=== PATIENT | female | born 1960 | race Caucasian/White ===

== ENCOUNTER → 2019-03-28 08:35 | Outpatient (CLI) | payer MEDICAID, SELFPAY ==
--- NOTE | 2019-03-28 08:40 | CA_ITS ---
APPROVED REPORT Market Research Interviewer: SANTOS Laterality: Bilateral Study Quality: Good Indications: Dizziness and Vertigo Risk Factors Hypertension: Hyperlipidemia Smoking Doppler Spectral Velocity Analysis ECA (R) 92.00/21.10 cm/s ECA (L) 60.20/18.10 cm/s dICA (R) 79.60/31.10 cm/s dICA (L) 69.70/31.80 cm/s Lilly (R) 81.60/33.00 cm/s Lilly (L) 56.30/23.70 cm/s pICA (R) 82.50/30.00 cm/s pICA (L) 43.90/16.80 cm/s dCCA (R) 121.00/34.60 cm/s dCCA (L) 79.30/27.00 cm/s pCCA (R) 143.00/37.70 cm/s pCCA (L) 110.00/33.30 cm/s Vert (R) 43.60/10.50 cm/s Vert (L) 43.90/18.40 cm/s ICA/CCA 0.68 ICA/CCA 0.88 Findings Duplex evaluation demonstrates no evidence of hemodynamically significant stenosis of the bilateral Internal Carotid Arteries. Antegrade flow seen bilateral vertebral arteries. Solid nodule seen left thyroid gland. Conclusion uplex evaluation demonstrates no evidence of hemodynamically significant stenosis of the bilateral Internal Carotid Arteries. Antegrade flow seen bilateral vertebral arteries. 1.5cm Solid nodule seen left thyroid gland. Electronically signed by : Christiano Hernandez MD 03/28/2019 15:55:14
== END ==
PROVIDERS: PCP Nurse Practitioner Family; Visit Provider Nurse Practitioner Family
DX: R42 Dizziness and giddiness (principal)
CPT/HCPCS: 93880

== ENCOUNTER → 2020-01-11 15:06 | Outpatient (CLI) | payer MEDICAID, SELFPAY ==
--- NOTE | 2020-01-11 15:09 | MR_ITS ---
PROCEDURE: MR HEAD/BRAIN WO CON CLINICAL INDICATION: AMNESIA Dizziness, amnesia COMPARISON: No exams were available for comparison TECHNIQUE: Routine multiplanar multi echo sequences are performed without gadolinium enhancement. FINDINGS: No midline shift, mass effect, intracranial hemorrhage, or hydrocephalus is evident. No evidence of acute infarction. The cerebellopontine angle, cerebellum, and brainstem are unremarkable. There is mild bifrontal atrophy. Unremarkable appearing white matter signal intensity. There is a partial empty sella. 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 There is some questionable thickening of the anterior aspect of the cyst wall.. No mastoid effusion or sinus air-fluid level IMPRESSION: 1. No acute intracranial findings. 2. Mild bifrontal atrophy. 3. 9 mm pineal cyst with questionable asymmetric thickening of the anterior wall of the cyst. Suggest 3 month follow-up without and with gadolinium enhancement with thin sections of the pineal gland for further evaluation. Dictated by: Christiano Hernandez MD 01/12/2020 06:04 Electronically signed by Christiano Hernandez MD in [place] 01/12/2020 06:04
== END ==
PROVIDERS: PCP Nurse Practitioner Family; Visit Provider Nurse Practitioner Family
DX: R41.3 Other amnesia (principal)
CPT/HCPCS: 70551

== ENCOUNTER 2021-01-25 16:49 | Emergency (ER) | payer MEDICAID, SELFPAY ==
[2021-01-25 16:50] VITALS: BP 138/74; PULSE 93; RESP 16; TEMP 37.1; O2SAT 97; BMI 47.5
--- NOTE | 2021-01-25 17:22 | HMH.EDGENADL ---
ED Disposition Clinical Impression: Abrasion, left knee, initial encounter Knee contusion Qualifiers: Encounter type: initial encounter Laterality: left Qualified Code(s): S80.02XA - Contusion of left knee, initial encounter Left knee sprain Qualifiers: Encounter type: initial encounter Involved ligament of knee: unspecified ligament Qualified Code(s): S83.92XA - Sprain of unspecified site of left knee, initial encounter Disposition: Home, Self-Care Condition on Discharge: Good Instructions: DI for Knee Sprain, How to Use a Knee Immobilizer Additional Instructions: Knee immobilizer until seen by orthopedics. Call orthopedics tomorrow and make appointment for follow-up. Ice for pain and swelling. Tylenol or ibuprofen for pain. Referrals: Joseline Dowell [Primary Care Provider] - Nelson Dougherty MD [Staff Physician] - - Critical Care Critical Care Time: No Attestation: On 01/25/21, the high probability of a clinically significant, sudden or life threatening deterioration of the following system(s) required my full and direct attention, intervention and personal management. The time I documented below is in addition to time spent performing reported procedures but includes the following listed in this critical care notation. Medical Decision Making - Lalito Inquiry Pt receiving controlled substance: No Vital Signs: 01/25/21 16:50 Temperature 98.8 F Temperature Source Oral Pulse Rate [Left] 93 H Respiratory Rate 16 Blood Pressure [Right Arm] 138/74 Blood Pressure Mean [Right Arm] 95 Blood Pressure Source [Right Arm] Automatic Cuff Blood Pressure Position [Right Arm] Sitting 02 Sat by Pulse Oximetry 97 Oxygen Delivery Method Room Air - Radiology Data #1 Image(s): Knee Image Reviewed: Yes I have reviewed radiologist's interpretation PROCEDURE INFORMATION: Exam: XR Left Knee Exam date and time: 01/25/2021 5:40 PM Age: 60 years old Clinical indication: Patient HX: Fall 2 days ago, left knee pain and weakness; Additional info: Injury TECHNIQUE: Imaging protocol: XR Left knee. Views: 3 views. COMPARISON: No relevant prior studies available. FINDINGS: Bones/joints: There are mild degenerative changes of the knee joint, predominantly involving the medial joint compartment. There is no evidence of acute fracture. There is no evidence of joint malalignment or dislocation. Soft tissues: There are no soft tissue masses or fluid collections. IMPRESSION: 1. There are mild degenerative changes of the knee joint, predominantly involving the medial joint compartment. 2. No evidence of acute fracture. 3. No evidence of acute dislocation. General Adult HPI - General Chief complaint: Extremity Problem,Nontraumatic Stated complaint: AO fall 01/23 injured L knee Time Seen by Provider: 01/25/21 17:22 Mode of Arrival: Ambulatory Limitations: No Limitations Description of Symptoms (Recalled from ER Triage Doc. by RN): patient fell off porch on tuesday. no LOC, did not hit head. patient now complains of left knee weakness, with abrasion. patient also caught self during fall with both hands, but recently had right carpal tunnel surgery 1week ago - History of Present Illness HPI narrative: 2 days ago she fell striking her left knee. Since then her left knee feels weak . She says sometimes when she stands up it wants to give out on her. The rest of her leg is not weak and she is able to walk when she gets up. She has an abrasion on her left knee. She recently had carpal tunnel surgery and says she struck her right hand where she had surgery, but the sutures are intact. She also sustained an abrasion to her right elbow. - Related Data Home Medications Medication Instructions Recorded Confirmed Amlodipine Besylate 10 mg PO DAILY 01/25/21 01/25/21 Ergocalciferol (Vitamin D2) 50,000 unit PO DAILY
--- NOTE | 2021-01-25 17:40 | XR_ITS ---
PROCEDURE INFORMATION: Exam: XR Left Knee Exam date and time: 01/25/2021 5:40 PM Age: 60 years old Clinical indication: Patient HX: Fall 2 days ago, left knee pain and weakness; Additional info: Injury TECHNIQUE: Imaging protocol: XR Left knee. Views: 3 views. COMPARISON: No relevant prior studies available. FINDINGS: Bones/joints: There are mild degenerative changes of the knee joint, predominantly involving the medial joint compartment. There is no evidence of acute fracture. There is no evidence of joint malalignment or dislocation. Soft tissues: There are no soft tissue masses or fluid collections. IMPRESSION: 1. There are mild degenerative changes of the knee joint, predominantly involving the medial joint compartment. 2. No evidence of acute fracture. 3. No evidence of acute dislocation.
--- NOTE | 2021-01-25 17:45 | PC.NURSE ---
patient to xray
--- NOTE | 2021-01-25 17:55 | PC.NURSE ---
patient returned from xray
[2021-01-25 18:39] VITALS: BP 142/74; PULSE 90; RESP 16; TEMP 36.8; O2SAT 97
== END 2021-01-25 18:41 | disposition home or self-care (01) ==
PROVIDERS: Emergency Provider Emergency Medicine; PCP Nurse Practitioner Family
DX: S80.02XA Contusion of left knee, initial encounter (principal); S83.92XA Sprain of unspecified site of left knee, initial encounter; W01.0XXA Fall on same level from slipping, tripping and stumbling without subsequent striking against object, initial encounter; Y92.019 Unspecified place in single-family (private) house as the place of occurrence of the external cause
CPT/HCPCS: 29505; 73562; 99282; 99283

== ENCOUNTER → 2021-04-15 10:40 | Outpatient (CLI) | payer MEDICAID, SELFPAY ==
[2021-04-15 14:13] LABS: Chloride 106 mmol/L (98-107); Sodium 141 mmol/L (136-145)
[2021-04-15 14:14] LABS: Potassium 4.5 mmoL/L (3.5-5.1)
[2021-04-15 14:16] LABS: Blood Urea Nitrogen 12 mg/dl (7-17); Estimated Glomerular Filt Rate 86 ml/min (>60); GFR (African American) 104 ML/MIN (>60)
[2021-04-15 14:17] LABS: Anion Gap 15.5 mEq/L (5-15); Carbon Dioxide 24 mmol/L (22.0-30.0); Glucose 111 mg/dl (74-100)
[2021-04-15 14:22] LABS: Basophils % 0.6 % (0.1-2.0); Eosinophils # 0.7 K/mm3 (0.0-0.4); Eosinophils % 11.9 % (0.1-12.0); Hematocrit 40.8 % (37.0-47.0); Hemoglobin 13.5 g/dL (12.2-16.2); Lymphocytes # 1.5 K/mm3 (0.7-4.5); Lymphocytes % 24.4 % (10-50); Mean Corpuscular Hemoglobin 30.2 pg (27.0-31.2); Mean Corpuscular Volume 91.4 fl (81-99); Mean Platelet Volume 8.5 fl (7.4-10.4); Monocytes # 0.4 K/mm3 (0.1-1.0); Monocytes % 7.4 % (1.7-9.3); Neutrophils # 3.4 K/mm3 (1.8-7.8); Neutrophils % 55.7 % (37.0-80.0); Platelet Count 324 K/mm3 (142-424); Red Blood Count 4.46 M/mm3 (4.20-5.40); Red Cell Distribution Width 13.7 % (11.5-17.5)
== END ==
PROVIDERS: Visit Provider Surgery
DX: Z01.812 Encounter for preprocedural laboratory examination (principal); Z11.52 Encounter for screening for COVID-19; L02.91 Cutaneous abscess, unspecified
CPT/HCPCS: 36415; 80048; 85025; C9803; U0003; U0005

== ENCOUNTER 2021-04-17 06:05 | Day surgery (SDC) | payer MEDICAID, SELFPAY ==
[2021-04-15 12:16] VITALS: BMI 43.9
[2021-04-17 06:21] VITALS: BP 114/69; PULSE 95; RESP 18; TEMP 36.7; O2SAT 95
--- NOTE | 2021-04-17 07:06 | P.PN_ITS ---
[facility] Anesthesia Checklist - Patient Identification Patient Identification: Arm Band, Verbal (Name & ) - Structural Data Admitted From: Home Planned Operative Procedure/s: ex. back lesion Consent for Planned Operative Procedure(s) Verified: Yes Verified Documents: History and Physical - NPO Status Verified Time NPO: 00:00 - Additional verifications Patient : No Anesthesia Reactions: No Hx Blood Transfusions: No Blood Transfusion Reaction: No Cephalosporin Allergy: No Previous Colonoscopy: Yes - Cardiovascular Assessment Heart Sounds: S1 & S2 Pulse Strength: Baseline Pulse Rhythm: Regular Peripheral Edema: No - Airway Assessment C-Spine Mobility Assessed: Yes TMJ Mobility Assessed: Yes Dentition: Good Dentition - Neurological Assessment Level of Consciousness: Awake, Alert, Appropriate Hx Seizures: No Numbness or tingling in extremities: No - Anesthesia Plan Anesthesia Risk discussed: Yes Anesthesia Plan: Verified ASA Class: III Anesthesia Type: MAC [facility] History I have reviewed the patient's past medical history: Yes Medical History: Reports:: Hyperlipidemia, Hypertension Denies:: Cancer, Diabetes Mellitus Type 1, Diabetes Mellitus Type 2, Internal Pacemaker, MRSA, Seizures *Have you ever received a pneumonia vaccine?: Yes *Have you received a flu vaccine this season?: Yes Other Medical History: Denies: Blood Transfusion Reaction Anesthesia experience/problems:: none Laterality Cases: Bilateral: Carpal Tunnel Release Other Surgeries: Yes: Colonoscopy. No: Pacemaker Amputation: No Fractures: No - *Social History Last grade of school completed: Advanced degree Smoking Status: Former smoker Alcohol Intake: never Substance Use Type: denies use *Occupational Status:: unemployed Housing: house *Travel in the last 8 weeks: None Family Hx:: Heart Attack, Hypertension, Mental illness
--- NOTE | 2021-04-17 07:51 | HMH.OPNOTE ---
Date of procedure: 04/17/21 Pre-op Diagnosis:: Abscessed cysts along left neck and mid upper back Post-op Diagnosis:: Same Procedure performed:: Excision of 2 cm cyst from mid upper back (recently abscessed) Excision of 0.5 cm cyst from left lateral/anterior neck (recently abscessed) Excision of 0.5 cm cyst from left lateral/posterior neck (recently abscessed) Surgeon:: Jorge L Heart MD Anesthesia: MAC Estimated blood loss (mL): 10 Operative findings:: No sign of current infection Operative note:: After informed consent was obtained the patient was taken to the operating room and placed in the right lateral decubitus position. Monitored anesthesia care ensued. Her upper back and left neck were prepped and draped in a sterile fashion. After infiltration local anesthetic an elliptical incision was made around the left anterior/lateral neck lesion. The deep subcutaneous tissue was dissected with a combination of sharp dissection and electrocautery. The 0.5 cm lesion was excised in toto and passed off for pathologic evaluation. Skin was reapproximated with 5-0 nylon. The left lateral/posterior lesion was excised in a similar manner. A 2 cm mid upper back lesion was excised in a similar manner. The skin at this site was closed with interrupted 4-0 nylon. Dressings were applied and the patient was transferred recovery in stable condition. Condition: stable Disposition: PACU Specimens:: Left anterior/lateral neck cyst Left posterior/lateral neck cyst Mid upper back cyst Complications:: No immediate
[2021-04-17 07:58] VITALS: BP 87/53; PULSE 75; RESP 14; TEMP 36.6; O2SAT 95
[2021-04-17 08:13] VITALS: BP 102/58; PULSE 75; RESP 16; TEMP 36.6; O2SAT 96
[2021-04-17 08:46] VITALS: BP 122/61; PULSE 75; RESP 16; TEMP 36.6; O2SAT 94
== END 2021-04-17 08:49 | disposition home or self-care (01) ==
LOC: OR 06:08
PROVIDERS: PCP Nurse Practitioner Family; Visit Provider Surgery
PROC: (CPT 11420; principal; 2021-04-17 07:30)
DX: L02.11 Cutaneous abscess of neck (principal); L02.212 Cutaneous abscess of back [any part, except buttock and flank]; E78.5 Hyperlipidemia, unspecified; I10 Essential (primary) hypertension; Z82.3 Family history of stroke; Z82.49 Family history of ischemic heart disease and other diseases of the circulatory system; Z81.8 Family history of other mental and behavioral disorders; Z79.899 Other long term (current) drug therapy; Z87.891 Personal history of nicotine dependence
CPT/HCPCS: 11420 ×2; 11402; 96374; J2405

== ENCOUNTER 2021-04-29 10:13 | Outpatient (CLI) | payer MEDICAID, SELFPAY ==
--- NOTE | 2021-04-29 12:17 | PC.NURSE ---
1020 - REMOVED DRESSING FOR MID UPPER BACK. WET PACKING WITH NS AND REMOVED. IRRIGATED WOUND WITH NS. WOUND BED RED AND MOIST. WOUND 2CM DEEP, MEASURING 2 X 3.5CM IN SIZE. PACKED WOUND WITH PART OF A DRY 4X4, COVERED WITH 2 DRY 4X4'S FOLDED IN HALF, AND TAPED IN PLACE.
== END 2021-04-29 10:40 | disposition home or self-care (01) ==
LOC: INF 10:13
PROVIDERS: PCP Nurse Practitioner Family; Visit Provider Surgery
DX: L72.9 Follicular cyst of the skin and subcutaneous tissue, unspecified (principal); L08.9 Local infection of the skin and subcutaneous tissue, unspecified; Z48.01 Encounter for change or removal of surgical wound dressing
CPT/HCPCS: G0463

== ENCOUNTER 2021-04-30 10:40 | Outpatient (CLI) | payer MEDICAID, SELFPAY ==
--- NOTE | 2021-04-30 11:14 | PC.NURSE ---
1045-REMOVED DRESSING FROM WOUND ON PT'S BACK, WETTING PACKING WITH NS PRIOR TO REMOVING. IRRIGATED WOUND WITH NS. WOUND BED RED AND MOIST. REPACKED WITH PORTION OF DRY 4X4 GAUZE, COVERED WITH 2 DRY 4X4'S FOLDED IN HALF, AND COVERED WITH TAPE.
== END 2021-04-30 11:00 | disposition home or self-care (01) ==
LOC: INF 10:41
PROVIDERS: PCP Nurse Practitioner Family; Visit Provider Surgery
DX: L72.9 Follicular cyst of the skin and subcutaneous tissue, unspecified (principal); L08.9 Local infection of the skin and subcutaneous tissue, unspecified; Z48.01 Encounter for change or removal of surgical wound dressing
CPT/HCPCS: G0463

== ENCOUNTER 2021-05-01 10:07 | Outpatient (CLI) | payer MEDICAID, SELFPAY | END 2021-05-01 10:31 | disposition home or self-care (01) | LOC: INF 10:07 | PROVIDERS: PCP Nurse Practitioner Family; Visit Provider Surgery | DX: L72.9 Follicular cyst of the skin and subcutaneous tissue, unspecified (principal); L08.9 Local infection of the skin and subcutaneous tissue, unspecified; Z48.01 Encounter for change or removal of surgical wound dressing | CPT/HCPCS: G0463 ==

== ENCOUNTER 2021-05-02 10:26 | Outpatient (CLI) | payer MEDICAID, SELFPAY ==
[2021-05-02 11:20] VITALS: BP 119/78; PULSE 91; RESP 18; O2SAT 97
--- NOTE | 2021-05-02 11:24 | PC.NURSE ---
Old dressing removed, wound cleansed with saline. Packed with dry 4x4 and covered with dry 4x4 and tape. Pt tolerated well.
== END 2021-05-02 10:43 | disposition home or self-care (01) ==
LOC: INF 10:26
PROVIDERS: PCP Nurse Practitioner Family; Visit Provider Surgery
DX: L72.9 Follicular cyst of the skin and subcutaneous tissue, unspecified (principal); L08.9 Local infection of the skin and subcutaneous tissue, unspecified; Z48.01 Encounter for change or removal of surgical wound dressing
CPT/HCPCS: G0463

== ENCOUNTER 2021-05-03 13:01 | Outpatient (CLI) | payer MEDICAID, SELFPAY ==
--- NOTE | 2021-05-03 13:23 | PC.NURSE ---
Old packing removed, small amount of tirado and serosanguineous drainage noted. wound bed pink and few very small white and dark areas. Wound cleansed w/saline. Packed with dry 4x4 and covered with dry 4x4 and medipore tape. Pt tolerated well.
== END 2021-05-03 13:18 | disposition home or self-care (01) ==
LOC: INF 13:02
PROVIDERS: PCP Nurse Practitioner Family; Visit Provider Surgery
DX: L72.9 Follicular cyst of the skin and subcutaneous tissue, unspecified (principal); L08.9 Local infection of the skin and subcutaneous tissue, unspecified; Z48.01 Encounter for change or removal of surgical wound dressing
CPT/HCPCS: G0463

== ENCOUNTER 2021-05-04 11:09 | Outpatient (CLI) | payer MEDICAID, SELFPAY ==
--- NOTE | 2021-05-04 15:18 | PC.NURSE ---
mid back wound measures 3 cm long, 2 cm wide, 1 cm deep today 05/04/21
== END 2021-05-04 15:21 | disposition home or self-care (01) ==
LOC: INF 11:09
PROVIDERS: PCP Nurse Practitioner Family; Visit Provider Surgery
DX: L72.9 Follicular cyst of the skin and subcutaneous tissue, unspecified (principal); L08.9 Local infection of the skin and subcutaneous tissue, unspecified; Z48.01 Encounter for change or removal of surgical wound dressing
CPT/HCPCS: G0463

== ENCOUNTER 2021-05-06 09:10 | Outpatient (CLI) | payer MEDICAID, SELFPAY ==
--- NOTE | 2021-05-06 10:01 | PC.NURSE ---
0915 - REMOVED DRESSING FROM WOUND ON MID UPPER BACK, WETTING PACKING WITH NS TO HELP WITH REMOVAL. IRRIGATED WOUND WITH NS, PACKED WITH PORTION OF DRY 4X4, COVERED WITH DRY 4X4'S AND TAPED INTO PLACE.
== END 2021-05-06 09:30 | disposition home or self-care (01) ==
LOC: INF 09:10
PROVIDERS: PCP Nurse Practitioner Family; Visit Provider Surgery
DX: L72.9 Follicular cyst of the skin and subcutaneous tissue, unspecified (principal); L08.9 Local infection of the skin and subcutaneous tissue, unspecified
CPT/HCPCS: G0463

== ENCOUNTER 2021-05-07 12:00 | Outpatient (CLI) | payer MEDICAID, SELFPAY | END 2021-05-07 12:15 | disposition home or self-care (01) | LOC: INF 12:01 | PROVIDERS: PCP Nurse Practitioner Family; Visit Provider Surgery | DX: L72.9 Follicular cyst of the skin and subcutaneous tissue, unspecified (principal); L08.9 Local infection of the skin and subcutaneous tissue, unspecified | CPT/HCPCS: G0463 ==

== ENCOUNTER 2021-05-08 11:29 | Outpatient (CLI) | payer MEDICAID, SELFPAY ==
[2021-05-08 11:00] VITALS: BP 128/74; PULSE 68; RESP 20; TEMP 36.9; O2SAT 95
== END 2021-05-08 11:45 | disposition home or self-care (01) ==
LOC: INF 11:31
PROVIDERS: PCP Nurse Practitioner Family; Visit Provider Surgery
DX: L72.9 Follicular cyst of the skin and subcutaneous tissue, unspecified (principal); L08.9 Local infection of the skin and subcutaneous tissue, unspecified; Z48.01 Encounter for change or removal of surgical wound dressing
CPT/HCPCS: G0463

== ENCOUNTER 2021-05-09 12:08 | Outpatient (CLI) | payer MEDICAID, SELFPAY | END 2021-05-09 12:20 | disposition home or self-care (01) | LOC: INF 12:10 | PROVIDERS: PCP Nurse Practitioner Family; Visit Provider Surgery | DX: L72.9 Follicular cyst of the skin and subcutaneous tissue, unspecified (principal); L08.9 Local infection of the skin and subcutaneous tissue, unspecified; Z48.01 Encounter for change or removal of surgical wound dressing | CPT/HCPCS: G0463 ==

== ENCOUNTER → 2021-05-10 12:57 | Outpatient (CLI) | payer MEDICAID, SELFPAY ==
[2021-05-10 13:12] VITALS: BP 133/99; PULSE 85; RESP 20; TEMP 37; O2SAT 95
== END ==
PROVIDERS: PCP Nurse Practitioner Family; Visit Provider Surgery
DX: L72.9 Follicular cyst of the skin and subcutaneous tissue, unspecified (principal); L08.9 Local infection of the skin and subcutaneous tissue, unspecified; Z48.01 Encounter for change or removal of surgical wound dressing
CPT/HCPCS: G0463

== ENCOUNTER 2021-05-11 10:29 | Outpatient (CLI) | payer MEDICAID, SELFPAY | END 2021-05-11 10:40 | disposition home or self-care (01) | LOC: INF 10:30 | PROVIDERS: PCP Nurse Practitioner Family; Visit Provider Surgery | DX: L72.9 Follicular cyst of the skin and subcutaneous tissue, unspecified (principal); L08.9 Local infection of the skin and subcutaneous tissue, unspecified; Z48.01 Encounter for change or removal of surgical wound dressing | CPT/HCPCS: G0463 ==

== ENCOUNTER 2021-05-12 12:33 | Outpatient (CLI) | payer MEDICAID, SELFPAY | END 2021-05-12 12:40 | disposition home or self-care (01) | LOC: INF 12:34 | PROVIDERS: PCP Nurse Practitioner Family; Visit Provider Surgery | DX: L72.9 Follicular cyst of the skin and subcutaneous tissue, unspecified (principal); L08.9 Local infection of the skin and subcutaneous tissue, unspecified; Z48.01 Encounter for change or removal of surgical wound dressing | CPT/HCPCS: G0463 ==

== ENCOUNTER 2021-05-13 12:06 | Outpatient (CLI) | payer MEDICAID, SELFPAY | END 2021-05-13 12:19 | disposition home or self-care (01) | LOC: INF 12:07 | PROVIDERS: PCP Nurse Practitioner Family; Visit Provider Surgery | DX: L72.9 Follicular cyst of the skin and subcutaneous tissue, unspecified (principal); L08.9 Local infection of the skin and subcutaneous tissue, unspecified; Z48.01 Encounter for change or removal of surgical wound dressing | CPT/HCPCS: G0463 ==

== ENCOUNTER 2021-05-14 11:37 | Outpatient (CLI) | payer MEDICAID, SELFPAY ==
--- NOTE | 2021-05-14 12:17 | PC.NURSE ---
1140 - REMOVED DRESSING FROM WOUND ON MID UPPER BACK. WET PACKING WITH NS AND REMOVED. IRRIGATED WOUND WITH NS. WOUND BED RED AND MOIST. PACKED WITH DRY 2X2 GAUZE, COVERED WITH 2 DRY 4X4 GAUZES FOLDED IN HALF, AND TAPED INTO PLACE.
== END 2021-05-14 11:55 | disposition home or self-care (01) ==
LOC: INF 11:37
PROVIDERS: PCP Nurse Practitioner Family; Visit Provider Surgery
DX: L72.9 Follicular cyst of the skin and subcutaneous tissue, unspecified (principal); L08.9 Local infection of the skin and subcutaneous tissue, unspecified; Z48.01 Encounter for change or removal of surgical wound dressing
CPT/HCPCS: G0463

== ENCOUNTER 2021-05-15 11:12 | Outpatient (CLI) | payer MEDICAID, SELFPAY ==
--- NOTE | 2021-05-15 12:01 | PC.NURSE ---
1115 - REMOVED DRESSING FROM WOUND ON PT'S MID UPPER BACK, WETTING PACKING WITH NS PRIOR TO REMOVING. IRRIGATED WOUND WITH NS. PACKED WITH PORTION OF DRY GAUZE, COVERED WITH DR 4X4 GAUZE FOLDED IN HALF, AND TAPED INTO PLACE.
== END 2021-05-15 11:30 | disposition home or self-care (01) ==
LOC: INF 11:12
PROVIDERS: PCP Nurse Practitioner Family; Visit Provider Surgery
DX: L72.9 Follicular cyst of the skin and subcutaneous tissue, unspecified (principal); L08.9 Local infection of the skin and subcutaneous tissue, unspecified; Z48.01 Encounter for change or removal of surgical wound dressing
CPT/HCPCS: G0463

== ENCOUNTER 2021-05-16 12:40 | Outpatient (CLI) | payer MEDICAID, SELFPAY | END 2021-05-16 12:57 | disposition home or self-care (01) | LOC: INF 12:41 | PROVIDERS: PCP Nurse Practitioner Family; Visit Provider Surgery | DX: L72.9 Follicular cyst of the skin and subcutaneous tissue, unspecified (principal); L08.9 Local infection of the skin and subcutaneous tissue, unspecified; Z48.01 Encounter for change or removal of surgical wound dressing | CPT/HCPCS: G0463 ==

== ENCOUNTER 2021-05-17 15:25 | Outpatient (CLI) | payer MEDICAID, SELFPAY ==
--- NOTE | 2021-05-17 16:20 | PC.NURSE ---
Addendum entered by Vanessa Ding RN 05/17/21 16:23: Wound cleansed with saline after old packing removed. Original Note: Old packing removed, small amount of tirado drainage noted. Wound bed is beefy red with no s/s of infection. Packed with dry piece of 2x2 gauze, covered w/dry 4x4 and medipore tape. Pt tolerated well.
== END 2021-05-17 15:58 | disposition home or self-care (01) ==
PROVIDERS: PCP Nurse Practitioner Family; Visit Provider Surgery
DX: L72.9 Follicular cyst of the skin and subcutaneous tissue, unspecified (principal); L08.9 Local infection of the skin and subcutaneous tissue, unspecified; Z48.01 Encounter for change or removal of surgical wound dressing
CPT/HCPCS: G0463

== ENCOUNTER 2021-05-18 12:06 | Outpatient (CLI) | payer MEDICAID, SELFPAY | END 2021-05-18 12:23 | disposition home or self-care (01) | LOC: INF 12:06 | PROVIDERS: PCP Nurse Practitioner Family; Visit Provider Surgery | DX: L72.9 Follicular cyst of the skin and subcutaneous tissue, unspecified (principal); L08.9 Local infection of the skin and subcutaneous tissue, unspecified; Z48.01 Encounter for change or removal of surgical wound dressing | CPT/HCPCS: G0463 ==

== ENCOUNTER 2021-05-19 13:54 | Outpatient (CLI) | payer MEDICAID, SELFPAY | END 2021-05-19 14:05 | disposition home or self-care (01) | LOC: INF 13:55 | PROVIDERS: PCP Nurse Practitioner Family; Visit Provider Surgery | DX: L72.9 Follicular cyst of the skin and subcutaneous tissue, unspecified (principal); L08.9 Local infection of the skin and subcutaneous tissue, unspecified; Z48.01 Encounter for change or removal of surgical wound dressing | CPT/HCPCS: G0463 ==

== ENCOUNTER 2021-05-20 13:17 | Outpatient (CLI) | payer MEDICAID, SELFPAY ==
--- NOTE | 2021-05-20 15:43 | PC.NURSE ---
1325 - REMOVED DRESSING AND PACKING FROM WOUND ON MID UPPER BACK. CLEANED WOUND WITH NS. WOUND SHALLOW, WOUND BED RED AND BEEFY APPEARING. PACKED WITH DRY 2X2, COVERED WITH DRY 4X4 FOLDED IN HALF, AND TAPED INTO PLACE.
== END 2021-05-20 13:35 | disposition home or self-care (01) ==
LOC: INF 13:20
PROVIDERS: PCP Nurse Practitioner Family; Visit Provider Surgery
DX: L72.9 Follicular cyst of the skin and subcutaneous tissue, unspecified (principal); L08.9 Local infection of the skin and subcutaneous tissue, unspecified; Z48.01 Encounter for change or removal of surgical wound dressing
CPT/HCPCS: G0463

== ENCOUNTER 2021-05-21 12:44 | Outpatient (CLI) | payer MEDICAID, SELFPAY | END 2021-05-21 12:50 | disposition home or self-care (01) | LOC: INF 12:45 | PROVIDERS: PCP Nurse Practitioner Family; Visit Provider Surgery | DX: L72.9 Follicular cyst of the skin and subcutaneous tissue, unspecified (principal); L08.9 Local infection of the skin and subcutaneous tissue, unspecified; Z48.01 Encounter for change or removal of surgical wound dressing | CPT/HCPCS: G0463 ==

== ENCOUNTER 2021-05-22 15:04 | Outpatient (CLI) | payer MEDICAID, SELFPAY | END 2021-05-22 15:20 | disposition home or self-care (01) | LOC: INF 15:04 | PROVIDERS: PCP Nurse Practitioner Family; Visit Provider Surgery | DX: L72.9 Follicular cyst of the skin and subcutaneous tissue, unspecified (principal); L08.9 Local infection of the skin and subcutaneous tissue, unspecified; Z48.01 Encounter for change or removal of surgical wound dressing | CPT/HCPCS: G0463 ==

== ENCOUNTER 2021-05-23 15:27 | Outpatient (CLI) | payer MEDICAID, SELFPAY ==
--- NOTE | 2021-05-23 17:02 | PC.NURSE ---
dressing changed by Melva Flores RN
== END 2021-05-23 16:00 | disposition home or self-care (01) ==
PROVIDERS: PCP Nurse Practitioner Family; Visit Provider Surgery
DX: L72.9 Follicular cyst of the skin and subcutaneous tissue, unspecified (principal); L08.9 Local infection of the skin and subcutaneous tissue, unspecified
CPT/HCPCS: G0463

== ENCOUNTER 2021-05-24 14:36 | Outpatient (CLI) | payer MEDICAID, SELFPAY ==
[2021-05-24 15:13] VITALS: BMI 43.9
--- NOTE | 2021-05-24 15:14 | PC.NURSE ---
Dressing change performed per order. Flushed with NS and covered with 2x2 gauze and tape. Tolerated well.
[2021-05-24 15:16] VITALS: BP 107/67; PULSE 81; RESP 18; TEMP 36.8; O2SAT 95
== END 2021-05-24 15:16 | disposition home or self-care (01) ==
PROVIDERS: PCP Nurse Practitioner Family; Visit Provider Surgery
DX: L72.9 Follicular cyst of the skin and subcutaneous tissue, unspecified (principal); L08.9 Local infection of the skin and subcutaneous tissue, unspecified
CPT/HCPCS: G0463

== ENCOUNTER 2021-05-25 16:12 | Outpatient (CLI) | payer MEDICAID, SELFPAY ==
[2021-05-24 15:03] VITALS: BP 107/69; PULSE 81; RESP 18; TEMP 36.8; O2SAT 95; BMI 43.9
== END 2021-05-25 16:35 | disposition home or self-care (01) ==
LOC: INF 16:12
PROVIDERS: PCP Nurse Practitioner Family; Visit Provider Surgery
DX: L72.9 Follicular cyst of the skin and subcutaneous tissue, unspecified (principal); L08.9 Local infection of the skin and subcutaneous tissue, unspecified; Z48.01 Encounter for change or removal of surgical wound dressing
CPT/HCPCS: G0463

== ENCOUNTER 2021-05-26 10:00 | Outpatient (CLI) | payer MEDICAID, SELFPAY | END 2021-05-26 10:13 | disposition home or self-care (01) | LOC: INF 10:00 | PROVIDERS: PCP Nurse Practitioner Family; Visit Provider Surgery | DX: L72.9 Follicular cyst of the skin and subcutaneous tissue, unspecified (principal); L08.9 Local infection of the skin and subcutaneous tissue, unspecified; Z48.01 Encounter for change or removal of surgical wound dressing | CPT/HCPCS: G0463 ==

== ENCOUNTER 2022-09-23 11:00 | Outpatient (RCR) | payer MEDICAID, SELFPAY | END 2022-10-04 13:15 | disposition home or self-care (01) | LOC: PT 11:00 | PROVIDERS: PCP Nurse Practitioner Family; Visit Provider Orthopaedic Surgery | DX: M19.012 Primary osteoarthritis, left shoulder (principal) | CPT/HCPCS: 97010; 97014; 97035; 97110; 97163; 97164; 97530; G0283 ==

== ENCOUNTER 2024-07-16 07:07 | Outpatient (RCR) | payer MEDICARE, SELFPAY | END 2024-07-16 23:59 | disposition home or self-care (01) | LOC: PT 07:07 | PROVIDERS: PCP Nurse Practitioner Family; Visit Provider Orthopaedic Surgery | DX: M17.12 Unilateral primary osteoarthritis, left knee (principal) | CPT/HCPCS: 97163 ==

== ENCOUNTER 2024-07-21 15:20 | Emergency (ER) | payer MEDICARE, SELFPAY ==
[2024-07-21] VITALS (9 sets, daily range): BP systolic 134–163; BP diastolic 67–103; PULSE 80–93; RESP 16–18; TEMP 36.8–37.1; O2SAT 95–99; BMI 42.0
--- NOTE | 2024-07-21 16:00 | HMH.EDGENADL ---
Discharge Plan Disposition Patient Disposition: Home, Self-Care Condition: Good Prescriptions Prescriptions: No Action sertraline 50 mg tablet 50 mg PO DAILY valsartan 80 mg tablet 80 mg PO DAILY lamotrigine 150 MG tablet 150 mg PO BID quetiapine 300 MG tablet 300 mg PO DAILY potassium chloride 20 MEQ tablet 20 meq PO DAILY Patient Comments: TAKE 1 TABLET BY MOUTH EVERY MORNING amlodipine 10 MG tablet 10 mg PO DAILY trazodone 300 MG tablet 300 mg PO DAILY ergocalciferol (vitamin D2) 50,000 UNIT capsule 50,000 unit PO DAILY Patient Comments: TAKE 1 CAPSULE BY MOUTH 1 TIME WEEKLY loratadine 10 MG tablet 10 mg PO DAILY meclizine 25 MG tablet,chewable 25 mg PO DAILY PRN (Reason: Vertigo) bupropion HCl 200 MG tablet sustained-release 12 hr 200 mg PO DAILY hydrochlorothiazide 12.5 MG tablet 12.5 mg PO DAILY PRN (Reason: fluid) ipratropium-albuterol 120 PUFF mist 2 puff PO DAILY Patient Comments: INHALE 1 PUFF BY MOUTH FOUR TIMES DAILY. RINSE MOUTH. MAY TAKE ADDITIONAL PUFFS NEEDED. NOT TO EXCEED 6 PUFFS IN 24 HOURS Referrals Follow up/Referrals: Joseline Dowell [Primary Care Provider] - See instructions Activity Restrictions/Add. Instructions Additional Instructions/Restrictions: Monitor temperature. Seek treatment if fever develops. Follow-up immediately if new or worse symptoms worsen or no noticeable improvement over 48 hours. Increase fluids such as water, Gatorade, Powerade, juice or Pedialyte with limited formula/dietary in children No food is okay as long as you are drinking. Once ready to eat start bland such as bananas, rice, applesauce, toast. Contagious until no diarrhea, vomiting, fever times 48 hours without medication Avoid antidiarrheals unless told otherwise. Best to let the virus run its course. Follow-up immediately for new or worsening symptoms or no noticeable improvement over the next 48 hours. Clinical Impressions Clinical Impression: Viral gastritis Diarrhea Qualifiers: Diarrhea type: unspecified type Qualified Code(s): R19.7 - Diarrhea, unspecified Instructions Patient Instructions: DI for Gastritis Print Language Print Language: Croatian Discharge ED Provider: Jas Sim General Adult HPI <John Perez ([facility]), FIELD RADIO OPERATOR - Last Filed: 07/21/24 17:14> General Chief complaint: PAIN Stated complaint: diarrhea, muscle cramps Time Seen by Provider: 07/21/24 15:38 Mode of Arrival: Ambulatory Source of Information: Patient Limitations: No Limitations Description of Symptoms (Recalled from ER Triage Doc. by RN): pt c/o diarrhea, lower abd cramping 03/03, BLE cramping 05/03. pt states she saw her PCP yesterday and was dx with colitis and started on cipro. pts main complaint is BLE cramping, she has not taken anything for the pain. pt reports 1wk prior she was being treated by her PCP for a L ear/sinus infection. pt reports she was given augmentin at this time which she d/c herself due to GI upset. History of Present Illness HPI narrative: 64-year-old female presents for complaints of diarrhea, lower abdominal cramping, bilateral lower leg cramping. Patient states she saw her PCP on Tuesday and again yesterday and was diagnosed with colitis started on antibiotics and probiotics. Patient states the bilateral lower leg cramping is what brought her into the ER for evaluation because she thinks her potassium might be low. Patient states a week ago she was treated by her PCP for a left ear and sinus infection was given Augmentin and stopped that a couple days later due to GI upset. At that time the antibiotic was changed to cefdinir and was given a probiotic Related Data Home Medications ?Medication ?Instructions ?Recorded ?Confirmed amlodipine 10 mg tablet 10 mg PO DAILY Hypertension 01/25/21 05/27/21 bupropion HCl 200 mg tablet,12 hr 200 mg PO DAILY mood stablizer 01/25/21 05/27/21 sustained-release ergocalciferol (vitamin D2) 1,250 50,000 unit PO DAILY Supplement 01/25/21 05/27/21 mcg (50,000 unit) capsule hydrochlorothiazide 12.5 mg tablet 12.5 mg PO DAILY PRN fluid 01/25/21 05/27/21 ipratropium 20 mcg-albuterol 100 2 puff PO DAILY Asthma 01/25/21 05/27/21 mcg/actuation mist for inhalation lamotrigine 150 mg tablet 150 mg PO BID mood stabilizer 01/25/21 05/27/21 loratadine 10 mg tablet 10 mg PO DAILY allergies 01/25/21 05/27/21 meclizine 25 mg chewable tablet 25 mg PO DAILY PRN Vertigo 01/25/21 05/27/21 potassium chloride 20 mEq 20 meq PO DAILY Supplement 01/25/21 05/27/21 tablet,extended release(part/cryst) quetiapine 300 mg tablet 300 mg PO DAILY mood stablizer 01/25/21 05/27/21 trazodone 300 mg tablet 300 mg PO DAILY mood stablizer 01/25/21 05/27/21 sertraline 50 mg tablet 50 mg PO DAILY Depression 03/24/21 05/27/21 valsartan 80 mg tablet 80 mg PO DAILY bp 03/24/21 05/27/21 Allergies Allergy/AdvReac Type Severity Reaction Status Date / Time No Known Allergies Allergy Verified 07/21/24 15:39 PFSH <John Perez ([facility]), FIELD RADIO OPERATOR - Last Filed: 07/21/24 17:14> PFS Disclaimer: The information contained in this section may have been updated after the patient was seen, as this information can be updated by other users. Social History Smoking Status: Former smoker alcohol intake: never substance use type: denies use current occupational status: retired Travel in the last 8 weeks: None household members: none housing: house caffeine: Yes Have you lived/traveled outside [place] in past 30 days?: No Contact w/someone who lives/traveled outside [place] past 30 days?: No Exposure to someone with infectious disease in past 14 days?: No Do you have a fever (greater than 100.4 F or 38 C)?: No Have you tested positive for COVID-19: No Exposed to someone with COVID-19 in past 14 days?: No Do you have a sore throat?: No Do you have a cough?: No Do you have any weakness?: Yes Do you have any diarrhea?: Yes Are you experiencing any unusual bleeding?: No Do you have any muscle aches/pain?: Yes Do you have any abdominal pain?: Yes Are you experiencing loss of taste or smell?: No Other Medical History Have you received the Flu Vaccine for this season: Yes Have you received the Pneumonia Vaccine: Yes <John Perez ([facility]), FIELD RADIO OPERATOR - Last Filed: 07/21/24 17:14> ROS Obtained: Yes Systems reviewed as appropriate & no additional complaints except as documented Physical Exam <Benalycesoham Mcleodherbert ([facility]), FIELD RADIO OPERATOR - Last Filed: 07/21/24 17:14> General General appearance: alert and in no apparent distress Eye Eye exam: Present normal appearance ENT ENT exam: Present normal exam, normal oropharynx and mucous membranes moist Respiratory Respiratory exam: Present normal lung sounds bilaterally Cardiovascular Cardiovascular exam: Present regular rate and normal rhythm Abdominal Exam Abdominal exam: Present soft and normal bowel sounds; Absent distention or tenderness Neurological Exam Neurological exam: Present alert and oriented X3 Skin Skin exam: Present warm and intact Medical Decision Making <Benalycesoham Mcleodherbert ([facility]), FIELD RADIO OPERATOR - Last Filed: 07/21/24 17:14> Medical Records Medical records reviewed: Yes I reviewed the patient's medical records. Screening: Per USPSTF and CDC recommendations, given the prevalence of disease in our region, it is our hospital?s policy to screen for HIV and viral Hepatitis for all patients aged 18 and over and those with ongoing risk factors. Lalito Inquiry Pt receiving controlled substance: No Lalito was queried for this patient: No Vital Signs: 07/21/24 15:33 07/21/24 15:34 07/21/24 15:35 Temperature 98.7 F Temperature Source Oral Pulse Rate 89 84 Pulse Rate [Left] 89 Respiratory Rate 16 Blood Pressure 159/86 H Blood Pressure [Right Arm] 159/86 H Blood Pressure Mean Blood Pressure Mean [Right Arm] 110 Blood Pressure Source Blood Pressure Source [Right Arm] Automatic Cuff Blood Pressure Position Blood Pressure Position [Right Arm] Sitting 02 Sat by Pulse Oximetry 98 96 95 Oxygen Delivery Method Room Air 07/21/24 16:00 07/21/24 16:30 07/21/24 16:53 Temperature Temperature Source Pulse Rate 83 93 H 93 H Pulse Rate [Left] Respiratory Rate Blood Pressure 147/95 H 163/103 H 147/98 H Blood Pressure [Right Arm] Blood Pressure Mean 112 123 Blood Pressure Mean [Right Arm] Blood Pressure Source Blood Pressure Source [Right Arm] Blood Pressure Position Blood Pressure Position [Right Arm] 02 Sat by Pulse Oximetry 98 99 98 Oxygen Delivery Method Room Air Room Air Room Air 07/21/24 16:54 07/21/24 17:19 07/21/24 17:28 Temperature 98.2 F 98.7 F Temperature Source Oral Pulse Rate 89 80 85 Pulse Rate [Left] Respiratory Rate 18 18 Blood Pressure 134/87 134/67 134/87 Blood Pressure [Right Arm] Blood Pressure Mean Blood Pressure Mean [Right Arm] Blood Pressure Source Automatic Cuff Automatic Cuff Blood Pressure Source [Right Arm] Blood Pressure Position Sitting Blood Pressure Position [Right Arm] 02 Sat by Pulse Oximetry 99 Oxygen Delivery Method Room Air Room Air Lab Data Lab results reviewed: Yes I reviewed the patient's lab results. Lab Results 07/21/24 15:35: WBC 8.5, RBC 4.97, Hgb 14.9, Hct 43.5, MCV 87.5, MCH 30.0, MCHC 34.3, RDW 12.7, Plt Count 359, MPV 9.0, Neut % (Auto) 66.5, Lymph % (Auto) 21.0, Park % (Auto) 8.9, Eos % (Auto) 2.7, Baso % (Auto) 0.7, Neut # (Auto) 5.7, Lymph # (Auto) 1.8, Park # (Auto) 0.8, Eos # (Auto) 0.2, Baso # (Auto) 0.1, Sodium 134 L, Potassium 4.6, Chloride 104, Carbon Dioxide 21 L, Anion Gap 13.6, BUN 9, Creatinine 0.70, Estimated Creat Clear 46, Estimated GFR 85, Est GFR ( Amer) 103, Glucose 109 H, Calcium 9.4, Magnesium 1.8, Total Bilirubin 0.6, AST 62 H, ALT 45, Alkaline Phosphatase 52, Total Protein 7.5, Albumin 4.8, Globulin 2.7, Albumin/Globulin Ratio 1.8, HIV Ag/Ab Combo Qual Negative 07/21/24 16:25: SARS-CoV-2 (PCR) Not detected, Influenza A Untype (PCR) Not detected, Influenza Type B (PCR) Not detected 07/21/24 15:35 07/21/24 15:35 Orders (Tests/Meds): ED MEDICATIONS Discontinued Medications Generic Name Dose Route Start Last Admin Trade Name Freq PRN Reason Stop Dose Admin Sodium Chloride 1,000 mls @ 999 mls/hr 07/21/24 15:58 07/21/24 16:12 Sod Chlor 0.9% 1000ml Bag IV 07/21/24 16:58 999 mls/hr .Q1H1M ONE Administration ORDERS Category Date Time Status CBC [Complete Blood Count Auto Diff] Stat Lab 07/21/24 15:35 Completed CMP [Comprehensive Metabolic Panel] Stat Lab 07/21/24 15:35 Completed HIV Combo Stat Lab 07/21/24 15:35 Completed Hep C Ab with Reflex to RNA Stat Lab 07/21/24 15:35 Received Magnesium Stat Lab 07/21/24 15:35 Completed Rapid PCR Covid and Flu A/B Stat Lab 07/21/24 16:25 Completed Medical Decision Narrative: In summary patient is a 64-year-old female who presents to the emergency department for evaluation of leg cramps and diarrhea. Patient is hemodynamically stable upon arrival, afebrile. Unremarkable physical exam. Differential diagnosis includes colitis, low potassium, low magnesium. Initial workup will be conducted with labs, COVID and flu swab. Initial inventions include normal saline bolus of 500 mL. Initial workup reviewed by co labs are unremarkable. Upon repeat evaluation patient states she is feeling better cramps have eased up after the IV fluids and would like to go home. Patient states she does not want a wait for COVID flu swab results we can just call her later. Given this patient was appropriate for discharge at this time will discharge home with close follow-up from PCP. <Jas Sim MD - Last Filed: 07/21/24 20:50> Vital Signs: 07/21/24 15:33 07/21/24 15:34 07/21/24 15:35 Temperature 98.7 F Temperature Source Oral Pulse Rate 89 84 Pulse Rate [Left] 89 Respiratory Rate 16 Blood Pressure 159/86 H Blood Pressure [Right Arm] 159/86 H Blood Pressure Mean Blood Pressure Mean [Right Arm] 110 Blood Pressure Source Blood Pressure Source [Right Arm] Automatic Cuff Blood Pressure Position Blood Pressure Position [Right Arm] Sitting 02 Sat by Pulse Oximetry 98 96 95 Oxygen Delivery Method Room Air 07/21/24 16:00 07/21/24 16:30 07/21/24 16:53 Temperature Temperature Source Pulse Rate 83 93 H 93 H Pulse Rate [Left] Respiratory Rate Blood Pressure 147/95 H 163/103 H 147/98 H Blood Pressure [Right Arm] Blood Pressure Mean 112 123 Blood Pressure Mean [Right Arm] Blood Pressure Source Blood Pressure Source [Right Arm] Blood Pressure Position Blood Pressure Position [Right Arm] 02 Sat by Pulse Oximetry 98 99 98 Oxygen Delivery Method Room Air Room Air Room Air 07/21/24 16:54 07/21/24 17:19 07/21/24 17:28 Temperature 98.2 F 98.7 F Temperature Source Oral Pulse Rate 89 80 85 Pulse Rate [Left] Respiratory Rate 18 18 Blood Pressure 134/87 134/67 134/87 Blood Pressure [Right Arm] Blood Pressure Mean Blood Pressure Mean [Right Arm] Blood Pressure Source Automatic Cuff Automatic Cuff Blood Pressure Source [Right Arm] Blood Pressure Position Sitting Blood Pressure Position [Right Arm] 02 Sat by Pulse Oximetry 99 Oxygen Delivery Method Room Air Room Air Lab Data Lab Results 07/21/24 15:35: WBC 8.5, RBC 4.97, Hgb 14.9, Hct 43.5, MCV 87.5, MCH 30.0, MCHC 34.3, RDW 12.7, Plt Count 359, MPV 9.0, Neut % (Auto) 66.5, Lymph % (Auto) 21.0, Park % (Auto) 8.9, Eos % (Auto) 2.7, Baso % (Auto) 0.7, Neut # (Auto) 5.7, Lymph # (Auto) 1.8, Park # (Auto) 0.8, Eos # (Auto) 0.2, Baso # (Auto) 0.1, Sodium 134 L, Potassium 4.6, Chloride 104, Carbon Dioxide 21 L, Anion Gap 13.6, BUN 9, Creatinine 0.70, Estimated Creat Clear 46, Estimated GFR 85, Est GFR ( Amer) 103, Glucose 109 H, Calcium 9.4, Magnesium 1.8, Total Bilirubin 0.6, AST 62 H, ALT 45, Alkaline Phosphatase 52, Total Protein 7.5, Albumin 4.8, Globulin 2.7, Albumin/Globulin Ratio 1.8, HIV Ag/Ab Combo Qual Negative 07/21/24 16:25: SARS-CoV-2 (PCR) Not detected, Influenza A Untype (PCR) Not detected, Influenza Type B (PCR) Not detected Orders (Tests/Meds): ED MEDICATIONS Discontinued Medications Generic Name Dose Route Start Last Admin Trade Name Freq PRN Reason Stop Dose Admin Sodium Chloride 1,000 mls @ 999 mls/hr 07/21/24 15:58 07/21/24 16:12 Sod Chlor 0.9% 1000ml Bag IV 07/21/24 16:58 999 mls/hr .Q1H1M ONE Administration ORDERS Category Date Time Status CBC [Complete Blood Count Auto Diff] Stat Lab 07/21/24 15:35 Completed CMP [Comprehensive Metabolic Panel] Stat Lab 07/21/24 15:35 Completed HIV Combo Stat Lab 07/21/24 15:35 Completed Hep C Ab with Reflex to RNA Stat Lab 07/21/24 15:35 Received Magnesium Stat Lab 07/21/24 15:35 Completed Rapid PCR Covid and Flu A/B Stat Lab 07/21/24 16:25 Completed Medical Decision Narrative: In summary patient is a 64-year-old female who presents to the emergency department for evaluation of leg cramps and diarrhea. Patient is hemodynamically stable upon arrival, afebrile. Unremarkable physical exam. Differential diagnosis includes colitis, low potassium, low magnesium. Initial workup will be conducted with labs, COVID and flu swab. Initial inventions include normal saline bolus of 500 mL. Initial workup reviewed by co labs are unremarkable. Upon repeat evaluation patient states she is feeling better cramps have eased up after the IV fluids and would like to go home. Patient states she does not want a wait for COVID flu swab results we can just call her later. Given this patient was appropriate for discharge at this time will discharge home with close follow-up from PCP. I was consulted by the SHYAM, and we discussed the complexity of the problems being addressed. I approved the treatment and management plan for this patient's care in the Emergency Department, thus performing a substantive portion of the medical decision making. Jas Sim MD Critical Care <John Perez ([facility]), FIELD RADIO OPERATOR - Last Filed: 07/21/24 17:14> Critical Care Time Critical Care Time: No
[2024-07-21] MEDS: 0.9 % SODIUM CHLORIDE 1000ML 1,000 ML 999 ML IV (16:12)
[2024-07-21 16:16] LABS: Magnesium 1.8 mg/dl (1.6-2.3)
[2024-07-21 16:28] LABS: Basophils # 0.1 K/mm3 (0-0.2); Basophils % 0.7 % (0.1-2.0); Eosinophils # 0.2 K/mm3 (0.0-0.4); Eosinophils % 2.7 % (0.1-12.0); Hematocrit 43.5 % (37.0-47.0); Hemoglobin 14.9 g/dL (12.2-16.2); Lymphocytes # 1.8 K/mm3 (0.7-4.5); Mean Corpuscular HGB Conc 34.3 g/dL (31.8-35.4); Mean Corpuscular Volume 87.5 fl (81-99); Monocytes # 0.8 K/mm3 (0.1-1.0); Monocytes % 8.9 % (1.7-9.3); Neutrophils # 5.7 K/mm3 (1.8-7.8); Neutrophils % 66.5 % (37.0-80.0); Platelet Count 359 K/mm3 (142-424); Red Blood Count 4.97 M/mm3 (4.20-5.40); Red Cell Distribution Width 12.7 % (11.5-17.5); White Blood Count 8.5 K/mm3 (4.8-10.8)
[2024-07-21 16:28] LABS: Coronavirus 19, PCR Not Detected (NotDetected); Influenza A, PCR Not Detected (NotDetected); Influenza B, PCR Not Detected (NotDetected)
[2024-07-21 16:53] LABS: Albumin Level 4.8 g/dl (3.5-5.0); Chloride 104 mmol/L (98-107); Potassium 4.6 mmoL/L (3.5-5.1); Sodium 134 mmol/L (136-145)
[2024-07-21 16:55] LABS: Blood Urea Nitrogen 9 mg/dl (7-17); Creatinine Clearance Estimated 46 mL/min (50-200); Estimated Glomerular Filt Rate 85 ml/min (>60); GFR (African American) 103 ML/MIN (>60)
[2024-07-21 16:56] LABS: Alanine Aminotransferase 45 U/L (12-78); Albumin/Globulin Ratio 1.8 (1.1-1.8); Alkaline Phosphatase 52 U/L (38-126); Anion Gap 13.6 mEq/L (5-15); Aspartate Amino Transferase 62 U/L (14-36); Bilirubin,Total 0.6 mg/dl (0.2-1.3); Calcium 9.4 mg/dl (8.4-10.2); Carbon Dioxide 21 mmol/L (22.0-30.0); Globulin 2.7 g/dL (1.3-3.2); Glucose 109 mg/dl (74-100); Total Protein,Serum 7.5 g/dl (6.3-8.2)
[2024-07-21 17:37] LABS: HIV Combo NEGATIVE (Negative)
[2024-07-23 11:08] LABS: HCV Ab Non Reactive (Non Reactive)
== END 2024-07-21 17:28 | disposition home or self-care (01) ==
PROVIDERS: Nurse Practitioner Family; Emergency Provider Emergency Medicine; PCP Nurse Practitioner Family
DX: K29.70 Gastritis, unspecified, without bleeding (principal); R10.30 Lower abdominal pain, unspecified; R19.7 Diarrhea, unspecified; M79.604 Pain in right leg; M79.605 Pain in left leg
CPT/HCPCS: 80053; 83735; 85025; 86803; 87389; 87636; 96360; 99283; J7030